=== PATIENT | male | born 1935 | race Caucasian/White ===

== ENCOUNTER 2017-07-10 08:25 | Emergency (ER) | payer MEDICARE, OTHER, SELFPAY | END 2017-07-10 08:47 | disposition home or self-care (01) | PROVIDERS: Emergency Provider Emergency Medicine; Family Provider Internal Medicine; PCP Internal Medicine; Visit Provider Emergency Medicine | DX: B02.9 Zoster without complications (principal) | CPT/HCPCS: 99282 ==

== ENCOUNTER → 2017-12-23 10:31 | Outpatient (CLI) | payer MEDICARE, OTHER, SELFPAY ==
[2017-12-23 11:11] LABS: Hemoglobin A1C% w Est Avg Glu 6.8 % (4.0-6.0)
[2017-12-23 11:19] LABS: Alanine Aminotransferase 34 IU/L (21-72); Albumin 4.6 g/dL (3.5-5.0); Albumin Globulin Ratio 1.8 (1.0-2.8); Alkaline Phosphatase 78 U/L (38-126); Aspartate Aminotransferase 22 IU/L (17-59); BUN Creatinine Ratio 24.3 (6-22); Bilirubin Total 1.1 mg/dL (0.2-1.3); Blood Urea Nitrogen 17 mg/dL (9-20); Calcium 10.2 mg/dL (8.4-10.2); Carbon Dioxide 31 mmol/L (22-32); Chloride 101 mmol/L (98-107); Cholesterol 164 mg/dL (140-199); Estimated Glomerular Filt Rate > 60.0 mL/min (>60); Globulin 2.5 g/dL (1.7-4.1); Glucose 147 mg/dL (80-110); HDL Cholesterol 54 mg/dL (40-60); HEMOLYSIS < 15 (0-50); LDL Cholesterol Calculated 94 mg/dL (<100); Potassium 4.7 mmol/L (3.4-5.1); Sodium 143 mmol/L (137-145); Total Protein 7.1 g/dL (6.3-8.2); Triglycerides 82 mg/dL (35-150)
== END ==
PROVIDERS: Family Provider Internal Medicine; PCP Internal Medicine; Visit Provider Internal Medicine
DX: C61 Malignant neoplasm of prostate (principal); E11.9 Type 2 diabetes mellitus without complications; E78.5 Hyperlipidemia, unspecified; I10 Essential (primary) hypertension
CPT/HCPCS: 36415; 80053; 80061; 83036; 84153

== ENCOUNTER → 2018-06-23 13:41 | Outpatient (CLI) | payer MEDICARE, OTHER, SELFPAY ==
[2018-06-23 14:52] LABS: Hemoglobin A1C% w Est Avg Glu 7.8 % (4.0-6.0)
[2018-06-23 14:56] LABS: BUN Creatinine Ratio 27.1 (6-22); Blood Urea Nitrogen 19 mg/dL (9-20); Calcium 9.9 mg/dL (8.4-10.2); Carbon Dioxide 27 mmol/L (22-32); Chloride 102 mmol/L (98-107); Estimated Glomerular Filt Rate > 60.0 mL/min (>60); Glucose 142 mg/dL (80-110); HEMOLYSIS < 15 (0-50); Potassium 4.1 mmol/L (3.4-5.1); Sodium 139 mmol/L (137-145)
[2018-06-23 16:03] LABS: Prostate Specific Antigen 2.64 ng/mL (0.10-4.00)
== END ==
PROVIDERS: Family Provider Urology; PCP Internal Medicine; Visit Provider Internal Medicine
DX: E11.9 Type 2 diabetes mellitus without complications (principal); C61 Malignant neoplasm of prostate
CPT/HCPCS: 36415; 80048; 83036; 84153

== ENCOUNTER → 2018-11-22 09:16 | Outpatient (CLI) | payer MEDICARE, OTHER, SELFPAY ==
[2018-11-22 10:57] LABS: BUN Creatinine Ratio 27.1 (6-22); Blood Urea Nitrogen 19 mg/dL (9-20); Calcium 10.3 mg/dL (8.4-10.2); Carbon Dioxide 28 mmol/L (22-32); Chloride 100 mmol/L (98-107); Estimated Glomerular Filt Rate > 60.0 mL/min (>60); Glucose 176 mg/dL (80-110); HEMOLYSIS < 15 (0-50); Potassium 4.1 mmol/L (3.4-5.1); Sodium 139 mmol/L (137-145)
[2018-11-22 11:31] LABS: Hemoglobin A1C% w Est Avg Glu 7.4 % (4.0-6.0)
== END ==
PROVIDERS: PCP Internal Medicine; Visit Provider Internal Medicine
DX: E11.65 Type 2 diabetes mellitus with hyperglycemia (principal); I10 Essential (primary) hypertension
CPT/HCPCS: 36415; 80048; 83036

== ENCOUNTER → 2019-02-22 08:51 | Outpatient (CLI) | payer MEDICARE, OTHER, SELFPAY ==
[2019-02-22 10:07] LABS: Alanine Aminotransferase 16 IU/L (<50); Albumin 4.4 g/dL (3.5-5.0); Albumin Globulin Ratio 1.7 (1.0-2.8); Alkaline Phosphatase 88 U/L (38-126); Aspartate Aminotransferase 20 IU/L (17-59); BUN Creatinine Ratio 22.2 (6-22); Bilirubin Total 0.8 mg/dL (0.2-1.3); Blood Urea Nitrogen 20 mg/dL (9-20); Calcium 10.2 mg/dL (8.4-10.2); Carbon Dioxide 29 mmol/L (22-32); Chloride 100 mmol/L (98-107); Cholesterol 177 mg/dL (140-199); Estimated Glomerular Filt Rate > 60.0 mL/min (>60); Globulin 2.6 g/dL (1.7-4.1); Glucose 190 mg/dL (80-110); HDL Cholesterol 39 mg/dL (40-60); HEMOLYSIS < 15 (0-50); LDL Cholesterol Calculated 115 mg/dL (<100); Potassium 3.8 mmol/L (3.4-5.1); Sodium 140 mmol/L (137-145); Triglycerides 115 mg/dL (35-150)
[2019-02-22 10:18] LABS: Hemoglobin A1C% w Est Avg Glu 7.8 % (4.0-6.0)
[2019-02-25 14:29] LABS: Parathyroid Hormone Int 21 pg/mL (14-64)
== END ==
PROVIDERS: PCP Internal Medicine; Visit Provider Internal Medicine
DX: E11.65 Type 2 diabetes mellitus with hyperglycemia (principal); E78.5 Hyperlipidemia, unspecified; I10 Essential (primary) hypertension; E83.52 Hypercalcemia
CPT/HCPCS: 36415; 80053; 80061; 83036; 83970

== ENCOUNTER → 2019-03-23 11:21 | Outpatient (CLI) | payer MEDICARE, OTHER, SELFPAY ==
[2019-03-23 13:15] LABS: Prostate Specific Antigen 2.63 ng/mL (0.10-4.00)
== END ==
PROVIDERS: PCP Internal Medicine; Visit Provider Urology
DX: C61 Malignant neoplasm of prostate (principal)
CPT/HCPCS: 36415; 84153

== ENCOUNTER 2019-06-09 12:43 | Emergency (ER) | payer MEDICARE, OTHER, SELFPAY ==
[2019-06-09 12:48] VITALS: BP 194/81; PULSE 88; RESP 18; TEMP 36.5; O2SAT 96; BMI 28.1
[2019-06-09 13:28] VITALS: BP 176/80; PULSE 63; RESP 16; O2SAT 96
--- NOTE | 2019-06-09 13:38 | ED_ITS ---
HPI - Fall <JOSETTE Herr-BC - Last Filed: 06/09/19 15:05> General Chief Complaint: Fall Stated Complaint: GLF, left elbow wound Time Seen by Provider: 06/09/19 12:46 Source: patient Mode of arrival: Ambulatory Limitations: no limitations History of Present Illness HPI Narrative: The patient is an 83-year-old male former smoker with history of hypertension who presents with a chief complaint of ground level fall and elbow wound yesterday. He states he slipped on the gravel, and tore the skin on his left elbow. Denies any hitting of head, neck or back pain. He does not take any blood thinners. He states he does not want any imaging today and only wants to have the wound cleansed and dressed. He does not know when his last tetanus shot was. He states he has full range of motion of his left elbow. Related Data Home Medications Medication Instructions Recorded Confirmed bimatoprost 0.01 % eye drops OPHTHALMIC (EYE) 90 Days #7 ml 10/18/17 02/28/19 Previous Rx's Medication Instructions Recorded Glucose: Test Strips 0 str #100 02/08/12 lisinopril 40 mg PO QDAY #90 tab 05/09/18 glipizide 10 mg PO BID #180 tab 05/23/18 hydrochlorothiazide 25 mg tablet 25 mg PO DAILY #90 tab 07/04/18 metformin [Glucophage] 850 mg PO TIDCC #270 tab 08/08/18 finasteride 5 mg tablet 5 mg PO QDAY #90 tab 09/13/18 amlodipine 5 mg tablet See Rx Instructions .ROUTE 02/09/19 .COMPLEX #90 tablet Allergies Allergy/AdvReac Type Severity Reaction Status Date / Time doxazosin [DOXAZOSIN] Allergy Mild HEADACHE Verified 02/28/19 09:20 timolol [TIMOLOL] Allergy Mild HEADACHE Verified 02/28/19 09:20 AND NAUSEA simvastatin [SIMVASTATIN] AdvReac Intermediate NAUSEA Verified 02/28/19 09:20 Review of Systems <ANGI HerrBC - Last Filed: 06/09/19 15:05> Review of Systems Narrative: GENERAL: Denies chills, fatigue, malaise, fever, sweats. HEENT: Denies sinus pain, ear pain, sore throat, difficulty swallowing, dizziness. RESPIRATORY: Denies dyspnea, cough, wheezing, hemoptysis, sputum. CARDIOVASCULAR: Denies chest pain, palpitations, orthopnea, edema, GASTROINTESTINAL: Denies nausea, vomiting, abdominal pain, diarrhea, constipation, melena. : Denies dysuria, frequency, incontinence, hematuria, urinary retention. MUSCULOSKELETAL: See HPI SKIN: See HPI NEUROLOGIC: Denies weakness, headache, numbness, change in speech, confusion, seizures, incoordination. PSYCHIATRIC: No concerning psychosocial issues. 12 point review of systems is negative except for those stated above Patient History <KENDALL Herr - Last Filed: 06/09/19 15:05> Medical History Cancer of prostate (Chronic 12/11/10) Diabetes mellitus (Chronic) Hypercalcemia (Chronic) Hyperparathyroidism (Chronic) Hypertension (Chronic) Hypertension (Chronic) Other and unspecified hyperlipidemia (Chronic) Prostate cancer (Chronic) Type 2 diabetes mellitus (Chronic) Uncontrolled type 2 diabetes mellitus (Chronic 04/05/14) Urinary urgency (Chronic 01/04/17) Surgical History History of left inguinal hernia repair (Resolved) S/P cataract extraction (Inactive ~02/2018) Family History Father Family history of testicular cancer Social History marital status: number of children: 4 household members: none lives independently: Yes caregiver/support person: No housing: house pets and animals: No education level: college 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: [employer] leisure activities: sports, reading and other (Work at home, yardwork.) Smoking Status: Former smoker Tobacco: How many years used: 48 Smokeless tobacco user: other (Cigarettes, pipes, chewed.) quit status: quit date established (1961) second hand exposure: Yes (When younger.) alcohol intake: former substance use type: does not use Smoking Status: Former smoker Substance Use Type: does not use Exam <KENDALL Herr - Last Filed: 06/09/19 15:05> Narrative Exam Narrative: GENERAL: This is a well-nourished, well-developed patient, in no acute distress with dressing on left arm HEAD: Atraumatic. Normocephalic. No temporal or scalp tenderness. EYES: Pupils equal round and reactive. Extraocular motions intact. No scleral icterus. No injection or drainage. ENT: Nose without bleeding, purulent drainage or septal hematoma. Throat without erythema, tonsillar hypertrophy or exudate. Uvula midline. Airway patent. NECK: Trachea midline. No JVD or lymphadenopathy. Supple, nontender, no m eningeal signs. CARDIOVASCULAR: Regular rate and rhythm without murmurs, gallops, or rubs. RESPIRATORY: Clear to auscultation. Breath sounds equal bilaterally. No wheezes, rales, or rhonchi. No cough. No increased respiratory effort. No accessory muscle use. EXTREMITIES: Skin exam as noted. Full range of motion noted left elbow, able to flex and extend pronate supinate. Positive right and left radial pulse. Capillary refill less than 2 seconds all fingers left hand. BACK: Nontender without deformity or crepitance. No flank tenderness. NEURO: AOx3. SKIN: 2 x 3 cm skin tear noted on olecranon of left elbow. Torn skin tissue was removed. No spreading erythema. No drainage. No active bleeding. Through dermis, not deeper. Initial Vital Signs Initial Vital Signs: Vital Signs Temperature 97.7 F 06/09/19 12:48 Pulse Rate 88 06/09/19 12:48 Respiratory Rate 18 06/09/19 12:48 Blood Pressure 194/81 H 06/09/19 12:48 Pulse Oximetry 96 06/09/19 12:48 <Grey Bryant DO - Last Filed: 06/09/19 15:28> Initial Vital Signs Initial Vital Signs: Vital Signs Temperature 97.7 F 06/09/19 12:48 Pulse Rate 88 06/09/19 12:48 Respiratory Rate 18 06/09/19 12:48 Blood Pressure 194/81 H 06/09/19 12:48 Pulse Oximetry 96 06/09/19 12:48 Course <ANGI HerrBC - Last Filed: 06/09/19 15:05> Orders Ordered: Discontinued Medications Diphtheria/Tetanus/Acell Pertussis (Adacel) 0.5 ml IM .ONCE ONE Stop: 06/09/19 12:53 Last Admin: 06/09/19 13:40 Dose: 0.5 ml Documented by: BERTIN Vital Signs Vital signs: Vital Signs - 8 hr 06/09/19 12:48 06/09/19 13:28 Temperature 97.7 F Pulse Rate 88 63 Respiratory Rate 18 16 Blood Pressure 194/81 H Blood Pressure [Right Arm] 176/80 H Pulse Oximetry 96 96 <Grey Bryant DO - Last Filed: 06/09/19 15:28> Orders Ordered: Discontinued Medications Diphtheria/Tetanus/Acell Pertussis (Adacel) 0.5 ml IM .ONCE ONE Stop: 06/09/19 12:53 Last Admin: 06/09/19 13:40 Dose: 0.5 ml Documented by: BERTIN Vital Signs Vital signs: Vital Signs - 8 hr 06/09/19 12:48 06/09/19 13:28 Temperature 97.7 F Pulse Rate 88 63 Respiratory Rate 18 16 Blood Pressure 194/81 H Blood Pressure [Right Arm] 176/80 H Pulse Oximetry 96 96 MDM - Fall <KENDALL Herr - Last Filed: 06/09/19 15:05> [facility] Narrative Medical decision making narrative: The patient is an 83-year-old male who prese [facility] with a chief complaint of a fall yesterday. He declines any imaging, did not hit his head. He has full range of motion of his elbow. His tetanus was updated wound was cleansed with Hibiclens and then dressed by nursing. I discussed at length monitoring for signs symptoms of infection, coming back to the emergency department for any acute concerns. Patient repeatedly declined x- ray of elbow. Patient has no questions or concerns upon discharge and states understanding of return precautions as well as follow-up care. Discharge Plan Departure Patient Disposition: Home Clinical Impression: Fall from ground level, Skin tear Discharge Date/Time: 06/09/19 14:17 Instructions: Minor Wounds (Alternative Therapy), How to Prevent Falls Activity Restrictions/Additional Instructions: Thank you for trusting us with your care today. Today we updated your tetanus. You do not want any imaging done today. Please monitor your skin tear for signs and symptoms of infection such as redness swelling and pus. Please see care these occur. Please come back to emergency department for any acute concerns. Please follow-up with primary care provider. Prescriptions: No Action Glucose: Test Strips 0 str Qty: 100 RF: 0 lisinopril 40 mg tablet 40 mg PO QDAY Qty: 90 RF: 3 glipizide 10 mg tablet 10 mg PO BID Qty: 180 RF: 3 metformin [Glucophage] 850 mg tablet 850 mg PO TIDCC Qty: 270 RF: 3 amlodipine 5 mg tablet See Rx Instructions .ROUTE .COMPLEX Qty: 90 RF: 3 bimatoprost 0.01 % drops ophthalmic (eye) 90 Days Qty: 7 RF: 0 hydrochlorothiazide 25 mg tablet 25 mg PO DAILY Qty: 90 RF: 3 finasteride 5 mg tablet 5 mg PO QDAY Qty: 90 RF: 3 Referrals: Cholo Akhtar MD [Primary Care Provider] - ED Sign-out <KENDALL Herr - Last Filed: 06/09/19 15:05> Cosign ED Attending Cosignature Attestation: I was immediately available in the department for consultation. This documentation has been reviewed and I agree with assessment and plan. Supervised by KENDALL Herr <Grey Bryant DO - Last Filed: 06/09/19 15:28> Sign Out Provider Sign Out Attestation: I was immediately available in the department for consultation. This documentation has been reviewed and I agree with assessment and plan. Supervised by Grey Bryant DO
[2019-06-09] MEDS: TET,DIPH,PERTUSS(ACELL),VAC/PF 0.5 ML SYRINGE IM (13:40)
== END 2019-06-09 14:17 | disposition home or self-care (01) ==
PROVIDERS: Emergency Provider Nurse Practitioner Family; PCP Internal Medicine
DX: S51.012A Laceration without foreign body of left elbow, initial encounter (principal); W19.XXXA Unspecified fall, initial encounter; Z23 Encounter for immunization
CPT/HCPCS: 90471; 99283; 90715

== ENCOUNTER → 2019-06-20 12:11 | Outpatient (CLI) | payer MEDICARE, OTHER, SELFPAY ==
[2019-06-20 12:55] LABS: Alanine Aminotransferase 25 IU/L (<50); Albumin 4.6 g/dL (3.5-5.0); Albumin Globulin Ratio 1.5 (1.0-2.8); Alkaline Phosphatase 93 U/L (38-126); Aspartate Aminotransferase 26 IU/L (17-59); BUN Creatinine Ratio 18.7 (6-22); Bilirubin Total 0.7 mg/dL (0.2-1.3); Blood Urea Nitrogen 14 mg/dL (9-20); Calcium 11.4 mg/dL (8.4-10.2); Carbon Dioxide 32 mmol/L (22-32); Chloride 101 mmol/L (98-107); Estimated Glomerular Filt Rate > 60.0 mL/min (>60); Glucose 206 mg/dL (80-110); HEMOLYSIS < 15 (0-50); Hemoglobin A1C% w Est Avg Glu 8.2 % (4.0-6.0); Potassium 4.8 mmol/L (3.4-5.1); Sodium 138 mmol/L (137-145); Total Protein 7.6 g/dL (6.3-8.2)
== END ==
PROVIDERS: PCP Internal Medicine; Referring Provider Internal Medicine; Visit Provider Internal Medicine
DX: E11.9 Type 2 diabetes mellitus without complications (principal); E21.3 Hyperparathyroidism, unspecified; E83.52 Hypercalcemia; I10 Essential (primary) hypertension
CPT/HCPCS: 36415; 80053; 83036

== ENCOUNTER → 2019-07-10 10:24 | Outpatient (CLI) | payer MEDICARE, OTHER, SELFPAY ==
[2019-07-10 12:03] LABS: BUN Creatinine Ratio 28.9 (6-22); Blood Urea Nitrogen 24 mg/dL (9-20); Calcium 11.7 mg/dL (8.4-10.2); Carbon Dioxide 30 mmol/L (22-32); Chloride 102 mmol/L (98-107); Estimated Glomerular Filt Rate > 60.0 mL/min (>60); Glucose 112 mg/dL (80-110); HEMOLYSIS < 15 (0-50); Potassium 4.2 mmol/L (3.4-5.1); Sodium 139 mmol/L (137-145)
== END ==
PROVIDERS: PCP Internal Medicine; Referring Provider Internal Medicine; Visit Provider Internal Medicine
DX: E21.3 Hyperparathyroidism, unspecified (principal); E83.52 Hypercalcemia
CPT/HCPCS: 36415; 80048

== ENCOUNTER → 2019-07-13 11:36 | Outpatient (CLI) | payer MEDICARE, OTHER, SELFPAY ==
[2019-07-14 09:03] LABS: Parathyroid Hormone Int 78 pg/mL (15-65)
[2019-07-14 13:11] LABS: Ionized Calcium 6.5 mg/dL (4.5-5.6)
== END ==
PROVIDERS: PCP Internal Medicine; Referring Provider Internal Medicine; Visit Provider Internal Medicine
DX: E21.3 Hyperparathyroidism, unspecified (principal); E83.52 Hypercalcemia
CPT/HCPCS: 36415; 82330; 83970

== ENCOUNTER → 2019-08-08 11:59 | Outpatient (CLI) | payer MEDICARE, OTHER, SELFPAY ==
[2019-08-08 14:11] LABS: BUN Creatinine Ratio 26.1 (6-22); Blood Urea Nitrogen 18 mg/dL (9-20); Calcium 11.4 mg/dL (8.4-10.2); Carbon Dioxide 29 mmol/L (22-32); Chloride 103 mmol/L (98-107); Estimated Glomerular Filt Rate > 60.0 mL/min (>60); Glucose 197 mg/dL (80-110); HEMOLYSIS < 15 (0-50); Sodium 140 mmol/L (137-145)
== END ==
PROVIDERS: PCP Internal Medicine; Referring Provider Internal Medicine; Visit Provider Internal Medicine
DX: E21.3 Hyperparathyroidism, unspecified (principal); E83.52 Hypercalcemia
CPT/HCPCS: 36415; 80048

== ENCOUNTER → 2019-09-11 11:52 | Outpatient (CLI) | payer MEDICARE, OTHER, SELFPAY ==
[2019-09-11 13:33] LABS: Hemoglobin A1C% w Est Avg Glu 7.3 % (4.0-6.0)
[2019-09-11 14:40] LABS: Alanine Aminotransferase 20 IU/L (<50); Albumin 4.3 g/dL (3.5-5.0); Albumin Globulin Ratio 1.6 (1.0-2.8); Alkaline Phosphatase 83 U/L (38-126); Aspartate Aminotransferase 25 IU/L (17-59); BUN Creatinine Ratio 22.2 (6-22); Bilirubin Total 0.7 mg/dL (0.2-1.3); Blood Urea Nitrogen 16 mg/dL (9-20); Calcium 11.7 mg/dL (8.4-10.2); Carbon Dioxide 31 mmol/L (22-32); Chloride 102 mmol/L (98-107); Estimated Glomerular Filt Rate > 60.0 mL/min (>60); Globulin 2.7 g/dL (1.7-4.1); Glucose 147 mg/dL (80-110); HEMOLYSIS < 15 (0-50); Potassium 4.1 mmol/L (3.4-5.1); Sodium 138 mmol/L (137-145)
== END ==
PROVIDERS: PCP Internal Medicine; Referring Provider Internal Medicine; Visit Provider Internal Medicine
DX: E11.65 Type 2 diabetes mellitus with hyperglycemia (principal); E21.3 Hyperparathyroidism, unspecified; E83.52 Hypercalcemia
CPT/HCPCS: 36415; 80053; 83036

== ENCOUNTER 2019-12-18 11:19 | Emergency (ER) | payer MEDICARE, OTHER, SELFPAY ==
--- NOTE | 2019-12-18 11:35 | PC.NURSE ---
Visualized upon entry to ED @ registration. No acute distress. Looked for in WR to triage @ 1125, no answer. Registration also looked and can't find patient. Not in bathrooms.
[2019-12-18 11:51] VITALS: BP 174/81; PULSE 64; RESP 18; TEMP 36.7; O2SAT 98
--- NOTE | 2019-12-18 12:09 | ED_ITS ---
HPI - Skin/Abscess/Foreign Bdy General Chief complaint: Skin/Abscess/Foreign Body Stated complaint: right arm injuries, fell 1 week ago Time Seen by Provider: 12/18/19 12:04 Source: patient Mode of arrival: Ambulatory Limitations: no limitations History of Present Illness HPI narrative: Patient is a 84-year-old male who presents with a right elbow wound. He says he fell last week and wants to make sure that is healing appropriately. He has been putting triple antibiotic ointment on it. He denies any fever it overall appears well but says his vision is bad and just wants to make sure he is doing the right thing. Related Data Home Medications Medication Instructions Recorded Confirmed bimatoprost 0.01 % eye drops OPHTHALMIC (EYE) 90 Days #7 ml 10/18/17 09/26/19 Previous Rx's Medication Instructions Recorded metformin [Glucophage] 850 mg PO TIDCC #270 tab 08/08/18 finasteride 5 mg tablet 5 mg PO QDAY #90 tab 09/13/18 amlodipine 5 mg tablet See Rx Instructions .ROUTE 02/09/19 .COMPLEX #90 tablet hydrochlorothiazide 25 mg tablet 25 mg PO DAILY #90 tab 06/12/19 glipizide 10 mg tablet See Rx Instructions .ROUTE 06/21/19 .COMPLEX #180 tablet lisinopril 40 mg tablet 40 mg PO QDAY #90 tab 08/18/19 oxybutynin chloride 5 mg tablet 5 mg PO TID #270 tab 09/26/19 blood sugar diagnostic #250 each 10/18/19 blood-glucose meter #1 each 10/18/19 Allergies Allergy/AdvReac Type Severity Reaction Status Date / Time doxazosin [DOXAZOSIN] Allergy Mild HEADACHE Verified 12/18/19 11:53 timolol [TIMOLOL] Allergy Mild HEADACHE Verified 12/18/19 11:53 AND NAUSEA simvastatin [SIMVASTATIN] AdvReac Intermediate NAUSEA Verified 12/18/19 11:53 Review of Systems Review of Systems Narrative: GENERAL: Denies chills,fever HEENT: Denies throat pain RESPIRATORY: Denies dyspnea, cough, wheezing CARDIOVASCULAR: Denies chest pain, palpitations GASTROINTESTINAL: Denies nausea, vomiting MUSCULOSKELETAL: Denies extremity pain, injury SKIN: See HPI NEUROLOGIC: Denies weakness, dizziness, headache, numbness 8 point review of systems is negative except for those stated above and HPI Patient History Medical History Cancer of prostate (Chronic 12/11/10) Diabetes mellitus (Chronic) Hypercalcemia (Chronic) Hyperparathyroidism (Chronic) Hypertension (Chronic) Hypertension (Chronic) Other and unspecified hyperlipidemia (Chronic) Prostate cancer (Chronic) Type 2 diabetes mellitus (Chronic) Uncontrolled type 2 diabetes mellitus (Chronic 04/05/14) Urinary incontinence (Chronic) Urinary urgency (Chronic 01/04/17) Surgical History History of left inguinal hernia repair (Resolved) S/P cataract extraction (Inactive ~02/2018) Family History Father Family history of testicular cancer Social History marital status: number of children: 4 household members: none lives independently: Yes caregiver/support person: No housing: house pets and animals: No education level: college 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 activities: sports, reading and other (Work at home, yardwork.) Smoking Status: Former smoker Tobacco: How many years used: 48 Smokeless tobacco user: other (Cigarettes, pipes, chewed.) quit status: quit date established (1961) second hand exposure: Yes (When younger.) alcohol intake: former substance use type: does not use Smoking Status: Former smoker alcohol intake frequency: other Substance Use Type: does not use Exam Initial Vital Signs Initial Vital Signs: Vital Signs Temperature 98.0 F 12/18/19 11:51 Pulse Rate 64 12/18/19 11:51 Respiratory Rate 18 12/18/19 11:51 Blood Pressure 174/81 H 12/18/19 11:51 Pulse Oximetry 98 12/18/19 11:51 GENERAL: very pleasant elderly male CARDIOVASCULAR: peripheral pulses in tact, cap refill <2 sec RESPIRATORY: No respiratory distress, speaks in full sentences without difficulty EXTREMITIES: Normal range of motion, no clubbing or edema. Neurovascularly intact NEUROLOGICAL: Cranial nerves II through XII grossly intact. Normal gait and speech. SKIN: Right elbow wound 2 cm x 1 cm pink tissue no surrounding erythema or drainage Course Vital Signs Vital signs: Vital Signs - 8 hr 12/18/19 11:51 12/18/19 12:23 Temperature 98.0 F Pulse Rate 64 64 Respiratory Rate 18 12 Blood Pressure 174/81 H 190/79 H Pulse Oximetry 98 98 Discharge Plan Departure Patient Disposition: Home Clinical Impression: Worried well Discharge Date/Time: 12/18/19 12:24 Instructions: DI for Wound Infection Activity Restrictions/Additional Instructions: *You have been diagnosed with no wound infection *What to do: You are doing a great job caring for a wound. Continue to put just 1 mg antibiotic ointments on your arm does not matter which 1 just pick you do not need both *Continue to take medications as directed *Follow up with your primary care provider in 2-3 days *Return to ER if you should have redness pus swelling pain fever or any new, worsening or concerning symptoms Prescriptions: No Action metformin [Glucophage] 850 mg tablet 850 mg PO TIDCC Qty: 270 RF: 3 amlodipine 5 mg tablet See Rx Instructions .ROUTE .COMPLEX Qty: 90 RF: 3 hydrochlorothiazide 25 mg tablet 25 mg PO DAILY Qty: 90 RF: 3 glipizide 10 mg tablet See Rx Instructions .ROUTE .COMPLEX Qty: 180 RF: 3 lisinopril 40 mg tablet 40 mg PO QDAY Qty: 90 RF: 3 (DME) blood sugar diagnostic [FreeStyle Lite Strips] Strip See Rx Instructions .ROUTE .MEDSUPPLY Qty: 250 RF: 11 (DME) blood-glucose meter [FreeStyle Elizabeth Lite] Kit See Rx Instructions .ROUTE .MEDSUPPLY Qty: 1 RF: 0 bimatoprost 0.01 % drops ophthalmic (eye) 90 Days Qty: 7 RF: 0 finasteride 5 mg tablet 5 mg PO QDAY Qty: 90 RF: 3 oxybutynin chloride 5 mg tablet 5 mg PO TID Qty: 270 RF: 3 Referrals: Cholo Akhtar MD [Primary Care Provider] -
[2019-12-18 12:23] VITALS: BP 190/79; PULSE 64; RESP 12; O2SAT 98
== END 2019-12-18 12:24 | disposition home or self-care (01) ==
PROVIDERS: Emergency Provider Emergency Medicine; PCP Internal Medicine
DX: S51.001A Unspecified open wound of right elbow, initial encounter (principal); W19.XXXA Unspecified fall, initial encounter
CPT/HCPCS: 99281

== ENCOUNTER → 2019-12-27 09:45 | Outpatient (CLI) | payer MEDICARE, OTHER, SELFPAY ==
[2019-12-27 11:20] LABS: Hemoglobin A1C% w Est Avg Glu 7.4 % (4.0-6.0)
[2019-12-27 11:43] LABS: Alanine Aminotransferase 19 IU/L (<50); Albumin 4.4 g/dL (3.5-5.0); Albumin Globulin Ratio 1.7 (1.0-2.8); Alkaline Phosphatase 127 U/L (38-126); Aspartate Aminotransferase 17 IU/L (17-59); BUN Creatinine Ratio 27.9 (6-22); Bilirubin Total 0.4 mg/dL (0.2-1.3); Blood Urea Nitrogen 24 mg/dL (9-20); Calcium 11.6 mg/dL (8.4-10.2); Carbon Dioxide 32 mmol/L (22-32); Chloride 99 mmol/L (98-107); Estimated Glomerular Filt Rate > 60.0 mL/min (>60); Globulin 2.6 g/dL (1.7-4.1); Glucose 184 mg/dL (80-110); HEMOLYSIS < 15 (0-50); Potassium 4.6 mmol/L (3.4-5.1); Sodium 137 mmol/L (137-145)
[2019-12-28 07:09] LABS: Parathyroid Hormone Int 92 pg/mL (15-65)
== END ==
PROVIDERS: PCP Internal Medicine; Referring Provider Internal Medicine; Visit Provider Internal Medicine
DX: E11.65 Type 2 diabetes mellitus with hyperglycemia (principal); E21.3 Hyperparathyroidism, unspecified; E83.52 Hypercalcemia
CPT/HCPCS: 36415; 80053; 83036; 83970

== ENCOUNTER 2020-01-08 14:31 | Emergency (ER) | payer MEDICARE, OTHER, SELFPAY ==
[2020-01-08 14:48] VITALS: BP 192/100; PULSE 74; RESP 20; TEMP 36.3; O2SAT 97
--- NOTE | 2020-01-08 15:07 | ED_ITS ---
HPI - General Adult General Chief complaint: Extremity Injury, Upper Stated complaint: right arm pain/stiff Time Seen by Provider: 01/08/20 14:50 Source: patient Mode of arrival: Ambulatory Limitations: no limitations History of Present Illness HPI narrative: 84-year-old male here for evaluation of arm pain and weakness and stiffness. He initially told triage that was his the right arm that he had the symptoms with last evening he initially told me that it was his left upper extremity. He did state that it was only 1 arm. He states that was a fairly gradual onset but for just over 1 hour had what he described as a upper extremity that would not move. He denies any other associated symptoms. It has completely resolved. Has never had anything like this in the past. States that he is taking all of his medications. Related Data Home Medications Medication Instructions Recorded Confirmed bimatoprost 0.01 % eye drops OPHTHALMIC (EYE) 90 Days #7 ml 10/18/17 01/02/20 Previous Rx's Medication Instructions Recorded metformin [Glucophage] 850 mg PO TIDCC #270 tab 08/08/18 finasteride 5 mg tablet 5 mg PO QDAY #90 tab 09/13/18 amlodipine 5 mg tablet See Rx Instructions .ROUTE 02/09/19 .COMPLEX #90 tablet hydrochlorothiazide 25 mg tablet 25 mg PO DAILY #90 tab 06/12/19 glipizide 10 mg tablet See Rx Instructions .ROUTE 06/21/19 .COMPLEX #180 tablet lisinopril 40 mg tablet 40 mg PO QDAY #90 tab 08/18/19 oxybutynin chloride 5 mg tablet 5 mg PO TID #270 tab 09/26/19 blood sugar diagnostic #250 each 10/18/19 blood-glucose meter #1 each 10/18/19 Allergies Allergy/AdvReac Type Severity Reaction Status Date / Time doxazosin [DOXAZOSIN] Allergy Mild HEADACHE Verified 01/02/20 10:15 timolol [TIMOLOL] Allergy Mild HEADACHE Verified 01/02/20 10:15 AND NAUSEA simvastatin [SIMVASTATIN] AdvReac Intermediate NAUSEA Verified 01/02/20 10:15 Review of Systems Constitutional Constitutional: Denies chills, Denies fatigue, Denies headache(s) and Reports weakness Eyes Eyes: Denies blurry vision and Denies change in vision ENT Ears, Nose, Mouth, and Throat: Denies headache(s) Cardiovascular Cardiovascular: Denies chest pain and Denies dyspnea Respiratory Respiratory: Denies dyspnea Gastrointestinal Gastrointestinal: Denies abdominal pain Genitourinary Genitourinary: Denies dysuria Genitourinary: Denies dysuria Musculoskeletal Comments: Arm weakness/pain Integumentary/Breasts Skin/Breast: Denies rash Neurologic Neurologic: Reports confusion, Denies headache(s) and Reports weakness Psychiatric Psychiatric: Reports confusion and Denies depression Endocrine Endocrine: Denies fatigue Hematologic/Lymphatic Hematologic/Lymphatic: Denies easy bleeding and Denies easy bruising Allergic/Immunologic Allergic/Immunologic: Denies urticaria Patient History Medical History Cancer of prostate (Chronic 12/11/10) Diabetes mellitus (Chronic) Hypercalcemia (Chronic) Hyperparathyroidism (Chronic) Hypertension (Chronic) Hypertension (Chronic) Other and unspecified hyperlipidemia (Chronic) Prostate cancer (Chronic) Type 2 diabetes mellitus (Chronic) Uncontrolled type 2 diabetes mellitus (Chronic 04/05/14) Urinary incontinence (Chronic) Urinary urgency (Chronic 01/04/17) Surgical History History of left inguinal hernia repair (Resolved) S/P cataract extraction (Inactive ~02/2018) Family History Father Family history of testicular cancer Social History marital status: number of children: 4 household members: none lives independently: Yes caregiver/support person: No housing: house pets and animals: No education level: college 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 rosa/spiritism: [employer] leisure activities: sports, reading and other (Work at home, yardwork.) Smoking Status: Former smoker Tobacco: How many years used: 48 Smokeless tobacco user: other (Cigarettes, pipes, chewed.) quit status: quit date established (1961) second hand exposure: Yes (When younger.) alcohol intake: former substance use type: does not use Smoking Status: Former smoker alcohol intake frequency: other Substance Use Type: does not use Exam Initial Vital Signs Initial Vital Signs: Vital Signs Temperature 97.4 F L 01/08/20 14:48 Pulse Rate 74 01/08/20 14:48 Respiratory Rate 20 01/08/20 14:48 Blood Pressure 192/100 H 01/08/20 14:48 Pulse Oximetry 97 01/08/20 14:48 Const General: cooperative, comfortable and well developed HENMT Head: normal to inspection and normocephalic Resp Effort & Inspection: normal respiratory effort Auscultation: clear to auscultation bilaterally Cardio Rate: regular rate Rhythm: regular rhythm GI Inspection: non-distended Palpation: soft Skin Lesions: no lesions Rashes: no rashes Neuro General: patient alert and patient awake Cranial Nerves: CN's II-XI intact bilaterally Speech: speech normal Motor: muscle tone normal throughout Sensory Exam: no sensory deficits noted Extrem General: capillary refill normal Psych Appearance: grossly normal and well kempt Scores NIH Stroke Scale Level of Conciousness: Alert, keenly responsive Ask month/age: Answers one question correctly, intubated follow commands Open/close eyes, close hand: Performs both tasks correctly Best gaze horizontal: Normal Visual ibanez: No visual loss Facial palsy: Normal symetrical movement Left arm drift: No drift for full 10 sec Right arm drift: No drift for full 10 sec Left leg drift: No drift for full 5 sec Right leg drift: No drift for full 5 sec Limb ataxia: Present in two limbs Sensory on face/arms/legs: Normal, no sensory loss Best language: No aphasia, normal Dysarthria: Normal Extinction or inattention: No abnormality Total NIH Stroke scale score: 3 Course Orders Ordered: ED Orders 01/08/20 11:08 Complete Blood Count AUTO DIFF Stat Comprehensive Metabolic Panel Stat Ethanol (ETOH) Stat Lipase Stat Partial Thromboplastin Time Stat Prothrombin Time INR Stat 01/08/20 15:06 CT head/brain wo con Stat EKG-12 Lead Stat Vital Signs Vital signs: Vital Signs - 8 hr 01/08/20 14:48 Temperature 97.4 F L Pulse Rate 74 Respiratory Rate 20 Blood Pressure 192/100 H Pulse Oximetry 97 Medical Decision Making Lab Data Lab results reviewed: Yes I reviewed the patient's lab results. Result diagrams: 01/08/20 11:08 01/08/20 11:08 Labs: Lab Results 01/08/20 01/08/20 01/08/20 Range/Units 11:08 11:08 11:08 WBC 7.7 (4.5-11.0) X10^3/uL RBC 5.11 (4.5-5.9) X10^6/uL Hgb 15.0 (13.5-17.5) g/dL Hct 44.3 (41-53) % MCV 86.6 (80-100) fL MCH 29.4 (26-34) PG MCHC 34.0 (30-36) % RDW 13.7 (11.6-14.8) % Plt Count 344 (150-400) X10^3/uL Neut % (Auto) 69.4 (50-75) % Lymph % (Auto) 23.5 L (25-40) % [place] % (Auto) 6.4 (3-14) % Eos % (Auto) 0.2 L (2-4) % Baso % (Auto) 0.5 (0-2) % Neut # (Auto) 5300 (3550-9382) /uL Lymph # (Auto) 1800 (5492-6773) /uL [place] # (Auto) 500 (0-900) /uL Eos # (Auto) 0 (0-450) /uL Baso # (Auto) 0 (0-100) /uL PT 11.0 (10.1-12.7) SECONDS INR 1.0 (0.9-1.3) APTT 34 (26.4-36.2) SECONDS Sodium 137 (137-145) mmol/L Potassium 5.2 H (3.4-5.1) mmol/L Chloride 101 (98-107) mmol/L Carbon Dioxide 32 (22-32) mmol/L BUN 15 (9-20) mg/dL Creatinine 0.78 (0.66-1.25) mg/dL Estimated GFR > 60.0 (>60) mL/min BUN/Creatinine Ratio 19.2 (6-22) Glucose 188 H (80-110) mg/dL Calcium 11.4 H (8.4-10.2) mg/dL Total Bilirubin 1.2 (0.2-1.3) mg/dL AST 31 (17-59) IU/L ALT 19 (<50) IU/L Alkaline Phosphatase 91 (38-126) U/L Total Protein 8.2 (6.3-8.2) g/dL Albumin 4.9 (3.5-5.0) g/dL Globulin 3.3 (1.7-4.1) g/dL Albumin/Globulin Ratio 1.5 (1.0-2.8) Lipase (23-300) U/L Ethyl Alcohol < 10 ( - 10) mg/dL 01/08/20 Range/Units 11:08 WBC (4.5-11.0) X10^3/uL RBC (4.5-5.9) X10^6/uL Hgb (13.5-17.5) g/dL Hct (41-53) % MCV (80-100) fL MCH (26-34) PG MCHC (30-36) % RDW (11.6-14.8) % Plt Count (150-400) X10^3/uL Neut % (Auto) (50-75) % Lymph % (Auto) (25-40) % [place] % (Auto) (3-14) % Eos % (Auto) (2-4) % Baso % (Auto) (0-2) % Neut # (Auto) (0910-5695) /uL Lymph # (Auto) (5132-0772) /uL [place] # (Auto) (0-900) /uL Eos # (Auto) (0-450) /uL Baso # (Auto) (0-100) /uL PT (10.1-12.7) SECONDS INR (0.9-1.3) APTT (26.4-36.2) SECONDS Sodium (137-145) mmol/L Potassium (3.4-5.1) mmol/L Chloride (98-107) mmol/L Carbon Dioxide (22-32) mmol/L BUN (9-20) mg/dL Creatinine (0.66-1.25) mg/dL Estimated GFR (>60) mL/min BUN/Creatinine Ratio (6-22) Glucose (80-110) mg/dL Calcium (8.4-10.2) mg/dL Total Bilirubin (0.2-1.3) mg/dL AST (17-59) IU/L ALT (<50) IU/L Alkaline Phosphatase (38-126) U/L Total Protein (6.3-8.2) g/dL Albumin (3.5-5.0) g/dL Globulin (1.7-4.1) g/dL Albumin/Globulin Ratio (1.0-2.8) Lipase 71 (23-300) U/L Ethyl Alcohol ( - 10) mg/dL Imaging Data CT scan - head: Radiologist's Impression: [address] [address] [address] Scan Report Signed Patient: Jaswinder Watts GMR#: [id number] : 1936Acct:[id number] Age/Sex: 84 / MDate of Service: 01/08/20 Loc: ED Accession Number: [id number] Procedure: CT head/brain wo con Ordering Provider: Neto Yin D.O. PROCEDURE: CT HEAD/BRAIN WO CON INDICATIONS: Possible TIA TECHNIQUE: Noncontrast 4.5 mm thick angled axial sections acquired from the foramen magnum to the vertex, with coronal and sagittal reformats. For radiation dose reduction, the following was used: automated exposure control, adjustment of mA and/or kV according to patient size. COMPARISON: None. FINDINGS: Image quality: There is metallic streak artifact from patient's dental hardware. CSF spaces: Basal cisterns are patent. No extra-axial fluid collections. There is moderate cerebral volume loss, with resultant ventricular and sulcal prominence. Brain: No intracranial hemorrhage, mass, or mass effect. There is a region of encephalomalacia in the right posterior parietal lobe consistent with sequelae of a prior infarct. There are confluent subcortical, periventricular and deep white matter hypodensities consistent with moderate to severe chronic small vessel ischemic changes. There is intracranial internal carotid artery atherosclerosis. Skull and face: Calvarium and visualized facial bones appear intact, without suspicious lesions. Sinuses: Visualized sinuses and mastoids are clear. IMPRESSION: 1. No acute intracranial hemorrhage or mass effect. 2. Right posterior parietal lobe as encephalomalacia consistent with sequelae of a prior infarct. 3. Moderate to severe severe chronic white matter small vessel ischemic changes also demonstrated. A superimposed acute lacunar infarct cannot be fully excluded. If clinical concern persists, further evaluation may be obtained with MRI. 4. Moderate cerebral volume loss. Dictated by: Keny Siddiqui M.D. on 01/08/2020 at 15:21 Approved by: Keny Siddiqui M.D. on 01/08/2020 at 15:24 ECG Data Attestation: I personally reviewed and interpreted this ECG as follows: Prior ECG tracings: not available for review Interpretation: Sinus rhythm Occasional PVC Ventricular rate is 62 LVH Normal QRS Normal QTC No ST T wave changes MDM Narrative Medical decision making narrative: Patient asymptomatic here in the emergency department. Had a NIH score of 3 however 2.2 this was related to having somewhat of a difficulty with doing [id number] of bilateral upper extremities. He was able to do it and I feel that the difficulty was most likely secondary to his ability understand what I was asking him to do. His head CT was unremarkable. Does not have AFib on his EKG. I did discuss the case with Dr. Akhtar who is the patient's primary provider. There is some concerned about a TIA however other than the upper extremity symptoms that he had last evening which have completely resolved there is no other concerning signs for TIA and he denies any other slurring of words are focal neurologic deficits. I feel that workup can be completed as an outpatient. Dr. Akhtar agreed with this. I was able to schedule a patient with a provider at his [facility] doctor's office in 2 days from now. Patient was given this information. He is given return precautions and follow-up instructions. He expressed understanding and agreement. Discharge Plan Departure Patient Disposition: Home Clinical Impression: Left arm weakness Discharge Date/Time: 01/08/20 16:26 Activity Restrictions/Additional Instructions: I did discuss your case with Dr. Akhtar who is your primary provider. He agreed that having you follow-up in the clinic within the next 48 hours would be appropriate. [place] [facility] [place] with a check-in time and 9:45 in the morning. This appointment will be with Dr. Pink. If you cannot make this appointment please contact them at [phone]. Return to the emergency department for any new or worsening symptoms Prescriptions: No Action metformin [Glucophage] 850 mg tablet 850 mg PO TIDCC Qty: 270 RF: 3 amlodipine 5 mg tablet See Rx Instructions .ROUTE .COMPLEX Qty: 90 RF: 3 hydrochlorothiazide 25 mg tablet 25 mg PO DAILY Qty: 90 RF: 3 glipizide 10 mg tablet See Rx Instructions .ROUTE .COMPLEX Qty: 180 RF: 3 lisinopril 40 mg tablet 40 mg PO QDAY Qty: 90 RF: 3 (DME) blood sugar diagnostic [FreeStyle Lite Strips] Strip See Rx Instructions .ROUTE .MEDSUPPLY Qty: 250 RF: 11 (DME) blood-glucose meter [FreeStyle [place] Lite] Kit See Rx Instructions .ROUTE .MEDSUPPLY Qty: 1 RF: 0 bimatoprost 0.01 % drops ophthalmic (eye) 90 Days Qty: 7 RF: 0 finasteride 5 mg tablet 5 mg PO QDAY Qty: 90 RF: 3 oxybutynin chloride 5 mg tablet 5 mg PO TID Qty: 270 RF: 3 Referrals: Cholo Akhtar MD [Primary Care Provider] -
[2020-01-08 15:38] LABS: Add Manual Diff / Slide Review NO; Basophils Absolute Auto 0 /uL (0-100); Basophils Percent Auto 0.5 % (0-2); Eosinophils Absolute Auto 0 /uL (0-450); Eosinophils Percent Auto 0.2 % (2-4); Hematocrit 44.3 % (41-53); Lymphocytes Absolute Auto 1800 /uL (1100-4500); Lymphocytes Percent Auto 23.5 % (25-40); Mean Corpuscular Hemoglobin 29.4 PG (26-34); Mean Corpuscular Volume 86.6 fL (80-100); Monocytes Absolute Auto 500 /uL (0-900); Monocytes Percent Auto 6.4 % (3-14); Neutrophils Absolute Auto 5300 /uL (1500-7000); Neutrophils Percent Auto 69.4 % (50-75); Platelet Count 344 X10^3/uL (150-400); Red Blood Cell Count 5.11 X10^6/uL (4.5-5.9); Red Cell Distribution Width 13.7 % (11.6-14.8); White Blood Cell Count 7.7 X10^3/uL (4.5-11.0)
[2020-01-08 15:49] LABS: PTT Partial Thromboplastin Tim 34 SECONDS (26.4-36.2)
[2020-01-08 15:51] LABS: Alanine Aminotransferase 19 IU/L (<50); Albumin 4.9 g/dL (3.5-5.0); Albumin Globulin Ratio 1.5 (1.0-2.8); Alkaline Phosphatase 91 U/L (38-126); Aspartate Aminotransferase 31 IU/L (17-59); BUN Creatinine Ratio 19.2 (6-22); Bilirubin Total 1.2 mg/dL (0.2-1.3); Blood Urea Nitrogen 15 mg/dL (9-20); Calcium 11.4 mg/dL (8.4-10.2); Carbon Dioxide 32 mmol/L (22-32); Chloride 101 mmol/L (98-107); Estimated Glomerular Filt Rate > 60.0 mL/min (>60); Ethanol (ETOH) < 10 mg/dL; Globulin 3.3 g/dL (1.7-4.1); Glucose 188 mg/dL (80-110); Sodium 137 mmol/L (137-145); Total Protein 8.2 g/dL (6.3-8.2)
[2020-01-08 15:52] LABS: HEMOLYSIS 95 (0-50); Potassium 5.2 mmol/L (3.4-5.1)
[2020-01-08 16:04] LABS: Lipase 71 U/L (23-300)
[2020-01-08 16:25] VITALS: BP 177/89; PULSE 70; RESP 18; O2SAT 99
== END 2020-01-08 16:26 | disposition home or self-care (01) ==
PROVIDERS: Emergency Provider Emergency Medicine; PCP Internal Medicine
DX: R53.1 Weakness (principal); R41.0 Disorientation, unspecified; M79.601 Pain in right arm; R07.9 Chest pain, unspecified
CPT/HCPCS: 36415; 70450; 80053; 80320; 83690; 85025; 85610; 85730; 93005; 99283; 99284

== ENCOUNTER → 2020-01-16 08:49 | Outpatient (CLI) | payer MEDICARE, OTHER, SELFPAY ==
--- NOTE | 2020-01-16 08:56 | DI.US.S_ITS ---
PROCEDURE: US CAROTID DOPPLER BI INDICATIONS: TIA EVALUATION TECHNIQUE: Color and pulse Doppler interrogation was performed of both carotid systems, with image documentation and velocity measurements. COMPARISON: None. FINDINGS: Stenosis calculations are based on SRU (Society of Radiologists in Ultrasound) criteria. Right side: Brachial blood pressure: 120/68 mm Hg. Common carotid artery peak systolic velocity: 106 Internal carotid artery peak systolic velocity: 375 Internal carotid artery end diastolic velocity: 50 External carotid artery peak systolic velocity: 147 ICA/CCA peak systolic ratio: 3.5 Fisher scale imaging description: Prominent calcific and soft plaque Percent internal carotid artery stenosis: 70% to near occlusion. Vertebral artery: Flow direction is antegrade. Left side: Brachial blood pressure: 121/68 mm Hg. Common carotid artery peak systolic velocity: 134 cm/sec. Internal carotid artery peak systolic velocity: 153 cm/sec. Internal carotid artery end diastolic velocity: 43 cm/sec. External carotid artery peak systolic velocity: 129 cm/sec. ICA/CCA peak systolic ratio: 1.1 . Fisher scale imaging description: Moderate calcific and soft plaque.70% tp tammy Percent internal carotid artery stenosis: 50-69% . Vertebral artery: Flow direction is antegrade. IMPRESSION: Right greater than left carotid stenosis, measuring 70% to near occlusion on the right. Dictated by: Toni Mederos M.D. on 01/16/2020 at 16:00 Approved by: Toni Mederos M.D. on 01/16/2020 at 16:05
== END ==
PROVIDERS: PCP Internal Medicine; Referring Provider Student in an Organized Health Care Education/Training Program; Visit Provider Student in an Organized Health Care Education/Training Program
DX: I65.23 Occlusion and stenosis of bilateral carotid arteries (principal); R29.898 Other symptoms and signs involving the musculoskeletal system
CPT/HCPCS: 93880

== ENCOUNTER → 2020-01-17 13:29 | Outpatient (CLI) | payer MEDICARE, OTHER, SELFPAY ==
--- NOTE | 2020-01-17 14:24 | DI.MRI.S_ITS ---
PROCEDURE: MR HEAD/BRAIN WO CON INDICATIONS: TIA TECHNIQUE: Non-contrast axial T1 spin echo, axial T2 fast spin echo, sagittal and axial FLAIR, coronal T2 fast spin echo, axial gradient echo, axial diffusion and ADC through the brain. COMPARISON: [facility], [place], US CAROTID DOPPLER BI, 01/16/2020, 9:03. [facility], CT, CT HEAD/BRAIN WO CON, 01/08/2020, 15:07. FINDINGS: Image quality: Excellent. CSF spaces: Ventricles appear symmetric in size and shape. Basal cisterns are patent. No extra-axial fluid collections. Brain: Diffusion-weighted images demonstrate abnormal increased diffusion-weighted signal within the left parieto-occipital region, as on series 11, image 65. There is associated dark signal seen on the accompanying ADC map. No intracranial mass effects. Numerous small foci of hemorrhage can be seen involving the left cerebral hemisphere, as demonstrated on series 10. There is cerebral volume loss for age. There are periventricular and deep white matter chronic small vessel ischemic changes. Brainstem appears normal. No chronic ischemic insults. Normal intravascular flow voids are present. Skull and face: Calvarial bone marrow is normal in signal. Orbits are normal. Note is made of bilateral lens replacements. Sinuses: Sinuses and mastoids are clear. IMPRESSION: Acute to subacute infarction seen involving the left parieto-occipital region. Note is made of age-appropriate brain parenchymal volume loss and chronic small vessel ischemic changes. Numerous small foci of hemorrhage can be seen throughout the left cerebral hemisphere. Please correlate with known patient history. Dictated by: Yoel Esteban M.D. on 01/17/2020 at 14:09 Approved by: Yoel Esteban M.D. on 01/17/2020 at 14:12
== END ==
PROVIDERS: PCP Internal Medicine; Referring Provider Student in an Organized Health Care Education/Training Program; Visit Provider Student in an Organized Health Care Education/Training Program
DX: G45.9 Transient cerebral ischemic attack, unspecified (principal)
CPT/HCPCS: 70551

== ENCOUNTER → 2020-02-28 08:18 | Outpatient (CLI) | payer MEDICARE, OTHER, SELFPAY | PROVIDERS: PCP Internal Medicine; Visit Provider Specialist | DX: C61 Malignant neoplasm of prostate (principal); N39.0 Urinary tract infection, site not specified; R39.9 Unspecified symptoms and signs involving the genitourinary system | CPT/HCPCS: 51798; 81002; 87077; 87086; 87186; 99214 ==

== ENCOUNTER → 2020-04-15 12:12 | Outpatient (CLI) | payer MEDICARE, OTHER, SELFPAY ==
[2020-04-15 13:19] LABS: BUN Creatinine Ratio 35.1 (6-22); Blood Urea Nitrogen 26 mg/dL (9-20); Calcium 10.6 mg/dL (8.4-10.2); Carbon Dioxide 32 mmol/L (22-32); Chloride 101 mmol/L (98-107); Estimated Glomerular Filt Rate > 60.0 mL/min (>60); Glucose 132 mg/dL (80-110); HEMOLYSIS < 15 (0-50); Potassium 4.6 mmol/L (3.4-5.1); Sodium 136 mmol/L (137-145)
[2020-04-15 14:03] LABS: Prostate Specific Antigen 1.75 ng/mL (0.10-4.00)
[2020-04-15 14:50] LABS: Hemoglobin A1C% w Est Avg Glu 7.2 % (4.0-6.0)
[2020-04-15 15:57] LABS: Alanine Aminotransferase 19 IU/L (<50); Albumin 4.3 g/dL (3.5-5.0); Albumin Globulin Ratio 1.8 (1.0-2.8); Alkaline Phosphatase 71 U/L (38-126); Aspartate Aminotransferase 23 IU/L (17-59); BUN Creatinine Ratio 32.5 (6-22); Bilirubin Total 0.6 mg/dL (0.2-1.3); Blood Urea Nitrogen 25 mg/dL (9-20); Calcium 11.1 mg/dL (8.4-10.2); Carbon Dioxide 33 mmol/L (22-32); Chloride 100 mmol/L (98-107); Estimated Glomerular Filt Rate > 60.0 mL/min (>60); Globulin 2.4 g/dL (1.7-4.1); Glucose 122 mg/dL (80-110); HEMOLYSIS < 15 (0-50); Potassium 4.2 mmol/L (3.4-5.1); Sodium 137 mmol/L (137-145); Total Protein 6.7 g/dL (6.3-8.2)
== END ==
PROVIDERS: Specialist; Student in an Organized Health Care Education/Training Program; PCP Internal Medicine; Referring Provider Internal Medicine; Visit Provider Internal Medicine
DX: I63.9 Cerebral infarction, unspecified (principal); N40.0 Benign prostatic hyperplasia without lower urinary tract symptoms; E11.9 Type 2 diabetes mellitus without complications; I65.23 Occlusion and stenosis of bilateral carotid arteries; I10 Essential (primary) hypertension
CPT/HCPCS: 36415; 80048; 80053; 83036; 84153

== ENCOUNTER → 2020-05-11 11:06 | Outpatient (CLI) | payer MEDICARE, OTHER, SELFPAY ==
[2020-05-11 12:30] LABS: COVID19 -Nasal RAPID Negative (Negative)
== END ==
PROVIDERS: PCP Internal Medicine; Visit Provider Physician Assistant
DX: Z20.822 Contact with and (suspected) exposure to COVID-19 (principal)
CPT/HCPCS: 87635; C9803